=== PATIENT | female | born 1990 | race Caucasian/White ===

== ENCOUNTER 2023-10-14 07:11 | Emergency (ER) | payer OTHER ==
[~2023-10-14] VITALS: Ht 157.5 cm; Wt 98.0 kg
[2023-10-14 07:16] VITALS: BP 127/69; PULSE 89; RESP 16; TEMP 98.4; O2SAT 98
--- NOTE | 2023-10-14 07:36 | NUR ---
33 Y/O FEMALE PT. PRESENT TO THE ED C/O RLQ PAIN RADIATING TO RIGHT LOWER BACK. PT. DENIES VOMITING BUT HAS NAUSEA. DENIES DIARRHEA. HEAD OF BED ELEVATED, RESPIRATIONS EVEN UNLABORED. PLAN OF CARE ONGOING.
[2023-10-14] MEDS: KETOROLAC 60 MG/2 ML VIAL IM ONE (07:41)
[2023-10-14] MEDS ORDERED: ACET-8905 PO (08:13)
[2023-10-14] MEDS ORDERED: IBUP-2213 PO (08:13)
[2023-10-14] MEDS ORDERED: ONDA8TAB87 PO (08:13)
[2023-10-14 08:17] VITALS: BP 127/69; PULSE 89; RESP 16; TEMP 98.4; O2SAT 98
--- NOTE | 2023-10-14 08:20 | NUR ---
Patient discharged with v/s stable. Written and verbal after care instructions given and explained. Patient verbalized understanding. Ambulatory with steady gait. All questions addressed prior to discharge. Advised to follow up with PMD.
== END 2023-10-14 08:20 | disposition home or self-care (01) ==
LOC: MED 07:11
DX: R10.11 Right upper quadrant pain (principal); R03.0 Elevated blood-pressure reading, without diagnosis of hypertension
CPT/HCPCS: 96372; 99283; J1885